=== PATIENT | female | born 1945 | race Caucasian/White ===

== ENCOUNTER → 2020-01-03 08:21 | Outpatient (BNVA) | payer MEDICARE, SELFPAY | PROVIDERS: PCP Internal Medicine; Visit Provider Orthopaedic Surgery | DX: M25.561 Pain in right knee (principal); Z96.651 Presence of right artificial knee joint | CPT/HCPCS: 99212; 99213 ==

== ENCOUNTER 2020-01-17 08:39 | Outpatient (REF) | payer MEDICARE, SELFPAY ==
--- NOTE | 2020-01-17 08:45 | XR_ITS ---
EXAMINATION: XR KNEE BILATERAL XR KNEE, RIGHT CLINICAL INFORMATION: Right artificial knee joint COMPARISON: 12/25/2018 TECHNIQUE: AP standing view of both knees. Lateral and sunrise views of the right knee. FINDINGS: Right knee: There is a total right knee arthroplasty. The distal femoral component articulates appropriately with the tibial plateau and patellar components. No periprosthetic lucency or fracture. No definite joint effusion. Vascular calcifications are noted. The soft tissues are unremarkable. Left knee: On this frontal view fixation screws and cerclage wire are noted at the patella. Mild medial compartment joint space narrowing. Marginal osteophytes of the medial and lateral compartments. Chondrocalcinosis. The appearance is similar to prior. IMPRESSION: Total right knee arthroplasty in typical positioning and alignment. Fixation hardware in place of the left patella. Degenerative changes at the medial and lateral compartments.
== END 2020-01-17 08:40 | disposition home or self-care (01) ==
LOC: HO.XRAY 08:39
PROVIDERS: PCP Internal Medicine; Referring Provider Internal Medicine; Visit Provider Orthopaedic Surgery
DX: Z96.651 Presence of right artificial knee joint (principal)
CPT/HCPCS: 73560; 73565